=== PATIENT | male | born 1945 | race Caucasian/White ===

== ENCOUNTER 2016-06-03 07:30 | Day surgery (SDC) | payer MEDICARE ==
--- NOTE | 2016-05-29 15:13 | PREOP HISTORY & PHYSICAL ---
HISTORY: 70 year old male complains of "ghosting" of bright lights when driving at night. This seems to be coming from the right eye and is quite bothersome after clearing of the vision in the left eye after cataract surgery. PAST OCULAR HISTORY: History of central serous retinopathy OU (late OD with severe vision loss OD, and in about 1991 OS with minor vision loss OS), Visually significant cataract OD. 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 Dyslipidemia, goal LDL below 100 (E78.5) Enlarged prostate with lower urinary tract symptoms (LUTS) (600.01)03/2010 S Essential hypertension with goal blood pressure less than 140/90 (I10) Impaired fasting glucose (790.21) (R73.01) Posterior subcapsular age-related cataract, both eyes (H25.043) Visually significant cataracts OS > OD. Posterior vitreous detachment of both eyes (H43.813) Posterior vitreous detachment OU. Vitamin D deficiency (E55.9) ALLERGIES; No Known Drug Allergies FAMILY HISTORY: Mother Age 100 (11/2015)History of macular degeneration and cataracts requiring surgery. SOCIAL HISTORY: Alcohol use Moderate alcohol use. 2 glasses of wine or gin and tonic per week. Tobacco use Never smoker. None. Vehicle Driving Yes. CURRENT MEDICATIONS: AmLODIPine Besylate (5MG Tablet, 1 (one) Oral daily, Taken starting 07/01/2015 ) Active. Aspirin EC Lo-Dose (81MG Tablet DR, 1 (one) Tablet DR Oral daily, Taken starting 01/25/2014) Active. Medications Reconciled PAST SURGICAL HISTORY: Prostatectomy; [id number]/2012 TUVP with Laser for BPH, Dr. Johnston. Cataract surgery / IOL OS 05/06/16 (Prochoda). REVIEW OF SYSTEMS General Not Present- Fever. Skin Not Present- New Lesions, Skin Cancer and Skin Problems. HEENT Present- Blurred Vision (OU) and Visual Disturbances (History of floaters) . Not Present- Decreased Hearing, Diplopia, Eye Pain, Sinusitis and Sleep Apnea. Respiratory Not Present- Asthma, Chronic Cough, Emphysema and Shortness of Breath. Breast Not Present- Breast Cancer. Cardiovascular Present- Hypertension. Not Present- Angina, Heart Problems, Heart Stent and Hyperlipidemia. Gastrointestinal Not Present- Heartburn and PUD. Male Genitourinary Present- BPH. Not Present- Prostate cancer. Musculoskeletal Not Present- Joint Pain. Neurological Not Present- Decreased Memory, Headaches, Stroke and Vertigo. Psychiatric Not Present- Anxiety and Depression. Endocrine Not Present- Diabetes and Thyroid Problems. Hematology Not Present- Bleeding Problems and Blood Clots. PHYSICAL EXAMINATION: Vitals (Mayur Rodriguez M.D.; 04/27/2016 4:03 PM) 04/27/2016 4:02 PM Pulse: 66 (Regular) P.OX: 96% (Room air) BP: 139/83 (Sitting, Left Wrist, Small) Chest and Lung Exam Auscultation Breath sounds - Clear and Symmetric throughout. Cardiovascular Auscultation Rhythm - Regular. Heart Sounds - Normal heart sounds. Murmurs & Other Heart Sounds - Auscultation of the heart reveals - No Murmurs. OCULAR EXAMINATION: VISUAL ACUITY: with correction (Glasses) OD 20/60-1 (eccentrically) WORKING Rx: OD -3.25 + 1.50 x 155 OS -4.25 + 1.00 x 015 ADD + 2.75 (Progressive lens) MANIFEST REFRACTION: OD -3.75 + 1.75 x 170 (20/50-1 (eccentrically) 20/80-) Better vision in trial frames CONFRONTATIONAL VISUAL STEIN: Normal to counting fingers in four quadrants OU PUPILS: Round and equal OU with no afferent pupillary defect seen EXTERNAL: Normal OU EXTRA-OCULAR MUSCLES: Versions full OU - orthotropic at both distance and near SLIT LAMP EXAM: LIDS/LASHES: Normal OU CONJUNCTIVA: Quiet OU CORNEA: Clear OU AC: Deep and quiet OU IRIS: Normal OU PUPILS: Round OU - dilated to about 6 mm OU LENS: 1-2+ nuclear sclerosis with 2-3+ central posterior sub-capsular plaque about 2-3 mm in diameter OD. ANTERIOR VITREOUS: No anterior vitreous cells or pigment seen OU TONOMETRY: TIME: 3:24 PM OD: 22 mm Hg OS: 22 mm Hg DILATING gtt: Phenylephrine 2.5% + Tropicamide 1% FUNDUS: C/D: 0.4 OD, 0.3 OS DISCS: Sharp with clear disc margins OU MACULA: Large 1.5 disc diameter punched-out central chorio-retinal macular scar OD. 2-3+ central pigmentary disturbance with significant macular mottling OS VESSELS: Normal OU PERIPHERY: Posterior vitreous detachment OU with no breaks, tears, or retinal detachments seen KERATOMETRY: OD 42.87 / 43.88 x 161 OS 42.56 / 43.58 x 023 AXIAL LENGTH: OD 26.30 +/- 0.020 OS 26.86 +/- 0.016 IMPRESSION: Posterior subcapsular age-related cataract, right eye - the patient would like to proceed with cataract surgery OD. We discussed the refractive goals and the patient would like to be corrected to about a -2.00 to -2.25 spherical equivalent postoperatively OD. 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 History of central serous retinopathy OD > OS - the patient has significant macular scarring OD > OS with a significant central scotoma OD (which would limit the visual acuity significantly after cataract surgery OD). Posterior vitreous detachment of both eyes (H43.813) Ocular hypertension OU - the patient has borderline intra-ocular pressures OU. We will see what his postoperative intra-ocular pressures show and whether this needs to be further evaluated in the future. PLAN: Cataract extraction with intra-ocular lens OD. Lid soaks and scrubs BID OU (pre-operative blepharitis protocol and antibiotic ointment instructions handout given to patient today). Erythromycin ophthalmic ointment q hs OU as blepharitis prophylaxis (an e-Rx with refills x 1 was sent to [facility] in [place] ([phone] ) today). BIOMETRY, OPHTHALMIC, BY PARTIAL COHERENCE INTERFEROMETRY (13556) Started Erythromycin 5MG/GM, Apply 1/8 inch Ointment to the eyelashes of both eyes at bedtime, 1 Tube, 04/27/2016, Ref. x1. Started Zymaxid 0.5%, 1 drop(s) four times daily to the operated eye, after surgery, 1 Bottle, 04/27/2016, Ref. x1. Started PrednisoLONE Acetate 1%, 1 drop(s) four times daily in the operated eye , after surgery, 10 Milliliter, 04/27/2016, Ref. x1. MTDD
[~2016-06-03 07:30] MED LIST: APRACLONIDINE 0.5% OPHTH 5 ML BTL OP ONE; BUPIVACAINE HCL/PF 0.75% 10 ML VIAL OP ONE; CIPROFLOXACIN 0.3% OPHTH 25 DROP/2.5 ML BTL OP SCH; CYCLOPENTOLATE HCL 1% OPHTH 2 ML BTL OP SCH; FLURBIPROFEN 0.03% OPHTH 2.5 ML BTL OP SCH; PHENYLEPHRINE 2.5% OPHTH 10 DROP/2 ML BTL OP SCH
[2016-06-03] MEDS ORDERED: FLURBIPROFEN 0.03% OPHTH 2.5 ML BTL ONE (08:03)
[2016-06-03] MEDS ORDERED: APRACLONIDINE 0.5% OPHTH 5 ML BTL ONE (08:04)
[2016-06-03] MEDS ORDERED: CYCLOPENTOLATE HCL 1% OPHTH 2 ML BTL ONE (08:04)
[2016-06-03] MEDS ORDERED: PHENYLEPHRINE 2.5% OPHTH 10 DROP/2 ML BTL ONE (08:04)
[2016-06-03] MEDS ORDERED: BUPIVACAINE HCL/PF 0.75% 10 ML VIAL ONE (08:04)
[2016-06-03] MEDS ORDERED: CIPROFLOXACIN 0.3% OPHTH 25 DROP/2.5 ML BTL ONE (08:04)
[2016-06-03 08:11] VITALS: RESP 16
[2016-06-03] MEDS ORDERED: KETOROLAC 0.45% OPHTH 1 DROP/EACH DROPERETTE ONE (08:48)
[2016-06-03] MEDS ORDERED: LIDOCAINE HCL/PF 1% 30 ML VIAL ONE (08:48)
[2016-06-03] MEDS ORDERED: BACITRACIN OPHTH OINTMENT 3.5 GM TUBE ONE (08:48)
[2016-06-03] MEDS ORDERED: CHONDROITIN/HYALURONIDATE OPHT 0.5 ML KIT ONE (08:49)
[2016-06-03 09:38] VITALS: BP 165/87; PULSE 59; TEMP 97.7; O2SAT 97
--- NOTE | 2016-06-03 14:35 | OPERATIVE REPORT ---
DATE OF SURGERY: 06/03/2016. SURGEON: Mayur Rodriguez MD ANESTHESIA: Topical with monitored anesthesia care. PREOPERATIVE DIAGNOSIS: Cataract, right eye. POSTOPERATIVE DIAGNOSIS: Cataract, right eye. OPERATION PERFORMED: Cataract extraction by phacoemulsification with posterior chamber intraocular lens, right eye. COMPLICATIONS: None. PROCEDURE: The patient was brought to the operating room where he was placed in the supine position. After the instillation of additional tetracaine drops in the right eye, the eye was prepped and draped in the usual sterile ophthalmic manner. A lid speculum was placed in the right eye, after which an inferior paracentesis was fashioned with 1-mm steel keratome, and 0.2 mL of 1% nonpreserved lidocaine was injected intracamerally followed by Viscoat. A temporal clear corneal incision of 3-mm width was fashioned with a steel keratome. A continuous curvilinear capsulorrhexis was fashioned with a bent- needle cystitome and Utrata forceps under Viscoat. Hydrodissection was carried out with balanced salt solution on an intraocular cannula. The nucleus was noted to rotate freely. Phacoemulsification proceeded in a two-handed fashion utilizing typical phacoemulsification times and montiel, as the nucleus was noted to be 2+ dense. Residual cortical material was then removed with the automated irrigation-aspiration handpiece. The anterior chamber and capsular bag were then reinflated with Provisc, after which an AcrySof model SA60AT foldable acrylic intraocular lens of 15.0 diopters power was placed into the capsular bag. The haptics were rotated with a Y hook and the intraocular lens was noted to center well. Residual viscoelastic was then removed with the automated irrigation-aspiration handpiece , after which the wound edges were hydrated with balanced salt solution. The intraocular pressure at the conclusion of the procedure was physiologic, and there was no evidence of wound leakage upon testing with a Weck Cornelia sponge. Acular drops and bacitracin ointment were placed in the right eye, and the patient was brought to the recovery area, having tolerated the procedure well. He was given full postoperative instructions. SAÚL
== END 2016-06-03 09:46 | disposition home or self-care (01) ==
LOC: SDS 07:30
PROVIDERS: ATTEND Ophthalmology
DX: H25.043 Posterior subcapsular polar age-related cataract, bilateral (principal); H25.011 Cortical age-related cataract, right eye; H35.713 Central serous chorioretinopathy, bilateral; E78.5 Hyperlipidemia, unspecified; N40.0 Benign prostatic hyperplasia without lower urinary tract symptoms; I10 Essential (primary) hypertension; R73.01 Impaired fasting glucose; E55.9 Vitamin D deficiency, unspecified; Z79.899 Other long term (current) drug therapy
CPT/HCPCS: J0171; V2632